=== PATIENT | male | born 1975 | race Caucasian/White ===

== ENCOUNTER 2017-12-06 14:29 | Emergency (ER) | payer SELFPAY ==
[~2017-12-06 14:29] MED LIST: DOXYCYCLINE HY100 MG PO; VENTOLIN HFA18 GM IH; ZITHROMAX Z-PA250 MG PO
[2017-12-06 14:42] LABS: BASOPHIL (%) 0.6 % (0-1); BASOPHIL COUNT 0.1 K/uL (0-0.1); EOSINOPHIL (%) 3.6 % (0-5); EOSINOPHIL COUNT 0.4 K/uL (0-0.3); HEMATOCRIT 46.5 % (38.0-50.0); HEMOGLOBIN 16.5 G/DL (12.5-16.6); IMMATURE GRANULOCYTE (%) 0.2 % (0.0-0.7); LYMPHOCYTE COUNT 4.1 K/uL (1.0-2.8); MCH 31.7 PG (29.0-34.0); MCHC 35.5 G/DL (30.0-36.0); MCV 89.4 FL (86-99); MONOCYTE (%) 5.4 % (3-12); MONOCYTE COUNT 0.6 K/uL (0-0.8); NEUTROPHIL (%) 50.2 % (45-76); NEUTROPHIL COUNT 5.2 K/uL (1.8-6.4); PLATELET COUNT 208 K/uL (156-360); RBC DIS.WIDTH-CV 12.4 % (11.8-14.6); RBC DIS.WIDTH-SD 40.8 % (39-53); WHITE BLOOD COUNT 10.3 K/uL (4.1-10.2)
[2017-12-06 14:50] LABS: AMYLASE 61 IU/L (1-118); CHLORIDE 103 mEq/L (99-109); POTASSIUM 3.9 mEq/L (3.7-5.4); SODIUM 138 mEq/L (136-147)
[2017-12-06 14:52] LABS: GLUCOSE 100 mg/dL (70-99)
[2017-12-06 14:55] LABS: SERUM ETHYL ALCOHOL < 10 mg/dL
[2017-12-06 14:56] LABS: GFR ESTIMATE (CALCULATED) > 59 mL/min/ (58.99-99999)
[2017-12-06 14:57] LABS: UREA NITROGEN (BUN) 12 mg/dL (9-23)
[2017-12-06 14:59] LABS: LIPASE 43 U/L (1.0-51.0)
[2017-12-06] MEDS ORDERED: PERCOCET 5/31 TABLET PO (16:18)
[2017-12-06 17:19] LABS: AMPHETAMINE NEGATIVE (500 ng/mL); BARBITURATES NEGATIVE (200 ng/mL); BENZODIAZEPINES NEGATIVE (150 ng/mL); BUPRENORPHINE NEGATIVE (10 ng/mL); COCAINE NEGATIVE (150 ng/mL); METHADONE NEGATIVE (200 ng/mL); METHAMPHETAMINE NEGATIVE (500 ng/mL); OPIATES (MORPHINE) NEGATIVE (100 ng/mL); OXYCODONE NEGATIVE (100 ng/mL); PHENCYCLIDINE NEGATIVE (25 ng/mL); PROPOXYPHENE NEGATIVE (300 ng/mL); THC CANNABINOIDS NEGATIVE (50 ng/mL); TRICYCLIC ANTIDEPRESSANTS NEGATIVE (300 ng/mL)
[2017-12-06 17:31] LABS: APPEARANCE CLEAR ((CLEAR)); BILIRUBIN NEGATIVE; BLOOD NEGATIVE; COLOR YELLOW ((YELLOW)); GLUCOSE (STRIP) NEGATIVE; KETONES NEGATIVE; LEUKOCYTES NEGATIVE; NITRITE NEGATIVE; PROTEIN (STRIP) NEGATIVE; SPECIFIC GRAVITY 1.017 (1.000-1.030); UCUL ADDED? NO; UROBILINOGEN 0.2 MG/DL (0.2-1.0)
== END 2017-12-06 16:54 | disposition home or self-care (01) ==
LOC: TRA 14:29
PROVIDERS: Emergency Medicine
DX: S80.11XA Contusion of right lower leg, initial encounter (principal); S90.31XA Contusion of right foot, initial encounter; V03.90XA Pedestrian on foot injured in collision with car, pick-up truck or van, unspecified whether traffic or nontraffic accident, initial encounter; I10 Essential (primary) hypertension; F17.200 Nicotine dependence, unspecified, uncomplicated
CPT/HCPCS: 71045; 72040; 72170; 73590; 73610; 73630; 80048; 81003; 82150; 83690; 85025; 86850; 86900; 86901; 99281; 99285; G0480